=== PATIENT | female | born 1980 | race Caucasian/White ===

== ENCOUNTER 2018-03-10 05:12 | Day surgery (SDC) | payer BC, OTHER ==
[2018-03-04 17:20] VITALS: BMI 29.7
[2018-03-10] MEDS ORDERED: MIDAZOLAM HCL 2 MG/2 ML SINGLE DOSE VIAL ONE (09:38)
[2018-03-10] MEDS ORDERED: PROPOFOL 20 ML ONE (09:38)
[2018-03-10] MEDS ORDERED: ROCURONIUM BROMIDE 50 MG/5 ML VIAL ONE (09:38)
--- NOTE | 2018-03-10 10:34 | HP ---
Satellite [facility] - Chief Complaint Chief Complaint: Voluntary sterilization History Source: Patient Limitations to Obtaining History: No Limitations - Past Medical History Allergies/Adverse Reactions: Allergies Allergy/AdvReac Type Severity Reaction Status Date / Time No Known Allergies Allergy Verified 03/10/18 09:18 ...LMP: 02/17/18 ...: No ...: 2 ...Para: 2 - Current Medications Current Medications: Home Medications Medication Instructions Recorded NK [No Known Home Medication] 03/10/18 [facility] Physical Exam - Physical Examination Vital Signs: Vital Signs Period Temp Pulse Resp BP Sys/Guillory Pulse Ox Last 24 Hr 97.3 F 63 16 110/76 100 General Appearance: Well Nourished, Well Developed ENT: Clear Lung: Clear to auscultation Heart: Regular rate & rhythm Breasts: Soft, Non-Tender Abdomen: Soft, No tenderness Extremities: No edema, No tenderness/swelling Pelvic Exam: Within normal limits External Genitalia, Within normal limits Vagina, Within normal limits Cervix, Within normal limits Uterus, Within normal limits [place] Neurological: Intact, Alert, Oriented Satellite Impression/Plan - Impression/Plan Impression: Voluntary Sterilization Operative Procedure: Bilateral salpingectomy Date to be Performed: 03/10/18
[2018-03-10] MEDS ORDERED: DEXAMETHASONE SOD PHOSPHATE 4 MG/1 ML VIAL ONE (10:43)
[2018-03-10] MEDS ORDERED: LACTATED RINGERS SOLUTION 1,000 ML IV SCH ×2 (10:45→13:45)
[2018-03-10] MEDS ORDERED: NEOSTIGMINE METHYLSULFATE 0.5 MG/ML - 10 ML MDV ONE (11:40)
--- NOTE | 2018-03-10 13:24 | OP ---
Operative Note - Note: Operative Date: 03/10/18 Pre-Operative Diagnosis: sterilization Operation: Laparoscopic bilateral salpingectomy Findings: as dictated Implants: none Post-Operative Diagnosis: Same as Pre-op Surgeon: Hiwot Gore Management Engineer: Chelly Thompson Anesthesiologist/[employer] ASSOCIATE: Akanksha Fernandez Anesthesia: General Specimens Removed: bilateral fallopian tubes Estimated Blood Loss (mls): 5 (ml) Drains, Volume Out (mls): 50 (ml yellow urine) Fluid Volume Replaced (mls): 1 (L LR) Operative Report Dictated: Yes
--- NOTE | 2018-03-10 13:25 | SURG ---
Surgery Power Plant Operations Manager Note Power Plant Operations Manager: Chelly Thompson PA-C (Suzy) Date of Service: 03/10/18 Diagnosis: Sterilization Procedure: Laparoscopic bilateral salpingectomy Goldman placed by ALMITA in OR I was present for the entirety of the operative procedure. For further detail, please refer to operative report. <Chelly Thompson - Last Filed: 03/10/18 13:24> I was present for the entirety of the operative procedure. For further detail, please refer to operative report. <Hiwot Gore - Last Filed: 03/18/18 10:35> Visit type - Case Type Case Type: Scheduled - Emergency Emergency Visit: No - New patient This patient is new to me today: Yes Date on this admission: 03/10/18 - Critical Care Critical Care patient: No <Chelly Thompson - Last Filed: 03/10/18 13:24>
[2018-03-10] MEDS ORDERED: oxyCODONE HCL 5 MG TABLET PO PRN (13:31)
[2018-03-10] MEDS ORDERED: oxyCODONE HCL 5 MG TABLET ONE (14:49)
[2018-03-10 19:12] VITALS: BP 105/58; PULSE 74; TEMP 97.9
--- NOTE | 2018-03-11 17:46 | PATH ---
Surgical Pathology Report Patient Name: BRIAN LEVI Med. Rec. #: [id number] /Age/Gender: 1980 (Age: 37) / F Account: [id number] Location: [facility] Taken: 03/10/2018 Received: 03/10/2018 Reported: 03/11/2018 Physicians: Hiwot Gore M.D. Specimen(s) Received BILATERAL FALLOPIAN TUBES Clinical History Sterilization Final Diagnosis BILATERAL FALLOPIAN TUBES, LAPAROSCOPIC SALPINGECTOMY: FALLOPIAN TUBE (1) WITH PARATUBAL CYST AND ENDOSALPINGOSIS (INCLUDING FIMBRIATED END AND FULL LUMINAL PORTION). UNREMARKABLE FALLOPIAN TUBE(2) (INCLUDING FIMBRIATED END AND FULL LUMINAL PORTION). Electronically Signed Gloria Poole M.D. Gross Description Received in formalin labeled "bilateral fallopian tubes," are 2 fimbriated, undesignated fallopian tubes averaging 6 cm in length. The outer surfaces are uribe purple and smooth. Sectioning reveals unremarkable lumen. [employer] Main[employer] Developer sections are submitted in 4 cassettes as follows: 1-arbitrarily designated "fallopian tube 1" fimbria; 2-cross sections of fallopian tube 1; 3-arbitrarily designated "fallopian tube 2" fimbria; 4-cross sections of fallopian tube 2. 03/10/201803/10/2018
--- NOTE | 2018-03-18 11:05 | OP ---
DATE OF OPERATION: 03/10/2018 PREOPERATIVE DIAGNOSES: Voluntary sterilization. OPERATION: Laparoscopic bilateral salpingectomy. PREOPERATIVE DIAGNOSIS: Voluntary sterilization, normal fallopian tubes. SURGEON: Hiwot Gore MD CHARGER TESTER: ALMITA Carney ANESTHESIA: General. PROCEDURE: The patient was taken to the operating room, placed in dorsal lithotomy position, prepped and draped in usual sterile fashion. A timeout was performed in accordance with hospital regulation. Goldman catheter was inserted into the bladder. A 5-mm umbilical incision was made. Veress needle was inserted into the cavity. Approximately 3-4 L of CO2 was insufflated into the cavity. Veress needle was then removed, and a 5-mm trocar was then inserted. Laparoscope and camera was attached. Visualization reveals normal tubes. Two trocars were placed in the left lower abdomen and right lower abdomen after 5-mm incisions were made and the trocars were inserted under direct visualization. Grasper and the LigaSure were attached. Grasp of the left tube was then performed, and coagulation and cutting of the tube were then performed on the left. The same procedure was completed on the right. Coagulation and cutting of the right tube were done. Ovaries were noted to be normal. Tubes were then bilaterally removed and submitted to Pathology. All instruments were then removed. Trocars were removed. CO2 was removed from the abdomen. Incisions were then closed using 3-0 Vicryl suture in subcuticular fashion. Wound was washed and dressed. Patient tolerated the procedure well and was taken to recovery in stable condition. Estimated blood loss was 5 mL. HIWOT GORE M.D. [id number]
== END 2018-03-10 16:35 | disposition home or self-care (01) ==
LOC: JASU-SURG 05:12
PROVIDERS: ATTEND Obstetrics & Gynecology
PROC: 0U574ZZ Destruction of Bilateral Fallopian Tubes, Percutaneous Endoscopic Approach (ICD-10-PCS; principal; 2018-03-10 10:00)
DX: Z30.2 Encounter for sterilization (principal)
CPT/HCPCS: 36415; 84703; 86850; 86900; 86901; 88302-TC; 94760